=== PATIENT | female | born 1980 | race Caucasian/White ===

== ENCOUNTER → 2017-07-20 | Outpatient (REF) | payer OTHER | LOC: M LAB REF 11:20 | DX: L91.8 Other hypertrophic disorders of the skin (principal) | CPT/HCPCS: 88304 ==

== ENCOUNTER → 2022-04-27 | Outpatient (CLI) | payer OTHER | LOC: M WHC 11:15 | PROVIDERS: ATTEND Nurse Practitioner Family | DX: Z12.31 Encounter for screening mammogram for malignant neoplasm of breast (principal) ==

== ENCOUNTER → 2022-06-13 | Outpatient (REF) | payer OTHER ==
[2022-06-13 17:58] LABS: ALBUMIN 3.9 G/DL (3.2-5.2); ALKALINE PHOSPHATASE 83 U/L (46-116); ALT/SGPT 20 U/L (7.0-40); AST/SGOT 14 U/L (<34); BILIRUBIN,TOTAL 0.4 MG/DL (0.3-1.2); BLOOD UREA NITROGEN 12 MG/DL (9-23); CARBON DIOXIDE LEVEL 29 MMOL/L (20-31); CHLORIDE LEVEL 102 MMOL/L (98-107); CHOLESTEROL LEVEL 190 MG/DL (<200); CHOLESTEROL RISK RATIO 4.27 (<5); CREATININE FOR GFR 0.59 MG/DL (0.55-1.30); GLOMERULAR FILTRATION RATE > 60.0 (>58); GLUCOSE, FASTING 93 MG/DL (60-100); HDL CHOLESTEROL 44.4 MG/DL (>40); LDL CHOLESTEROL 105.8 MG/DL (<100); NON-HDL-C 145.6 MG/DL; POTASSIUM SERUM 4.2 MMOL/L (3.5-5.1); SODIUM LEVEL 137 MMOL/L (136-145); TOTAL PROTEIN 6.9 G/DL (5.7-8.2); TRIGLYCERIDES LEVEL 199 MG/DL (<150)
[2022-06-13 17:59] LABS: FREE T4 0.85 NG/DL (0.89-1.76); THYROID STIMULATING HORMONE 2.118 uIU/ML (0.55-4.78)
[2022-06-13 18:00] LABS: HEMOGLOBIN A1c 5.1 % (4.0-6.0); TOTAL 25(OH) VITAMIN D 16.5 NG/ML (20.0-100.0)
[2022-06-13 18:24] LABS: HIV 1&2 SCREEN ATELLICA NEGATIVE (NEGATIVE)
== END ==
LOC: M LAB REF 16:37
PROVIDERS: ATTEND Nurse Practitioner Family
DX: E66.9 Obesity, unspecified (principal); Z11.9 Encounter for screening for infectious and parasitic diseases, unspecified